=== PATIENT | male | born 1965 | race Asian ===

== ENCOUNTER 2020-09-26 08:19 | Emergency (ER) | payer OTHER ==
[~2020-09-26] VITALS: Ht 175.3 cm; Wt 70.8 kg
== END 2020-09-26 12:50 | disposition home or self-care (01) ==
LOC: ED 08:19
DX: S16.1XXA Strain of muscle, fascia and tendon at neck level, initial encounter (principal); S39.012A Strain of muscle, fascia and tendon of lower back, initial encounter; W01.198A Fall on same level from slipping, tripping and stumbling with subsequent striking against other object, initial encounter; I10 Essential (primary) hypertension; E11.9 Type 2 diabetes mellitus without complications; E78.00 Pure hypercholesterolemia, unspecified; Z87.891 Personal history of nicotine dependence
CPT/HCPCS: 72040; 72131; 72170; 96372; 99284-25; J1885